=== PATIENT | male | born 1995 | race Caucasian/White ===

== ENCOUNTER 2017-07-05 15:17 | Emergency (ER) | payer OTHER ==
[2017-07-05] MEDS ORDERED: LET GEL TOPICAL 1 EA SYR TP ONE (16:08)
--- NOTE | 2017-07-05 16:12 | EDPHY ---
Addendum entered and electronically signed by Kristopher Dexter MD 07/05/17 17: 38: The patient does have a slightly displaced fracture of the anterior frontal sinus. There is evidence of a interval plate fracture or intracranial hemorrhage. This is a nonsurgical and non operative injury. The patient has been informed of the diagnosis. He will be discharged home with customary aftercare instructions and return precautions. There is no evidence that this fracture is open. Original Note: General - History Smoking Status: Never smoked Narrative: Independent physician examination I evaluated and participated in the management of the patient. I also evaluated the patient independently. My co-signature indicates that I have reviewed this chart and I agree with the findings and plan of care as documented. My personal H&P findings include: The patient presents to the ED with complaints of scalp pain and facial trauma following a mechanical fall. The patient is noted to have multiple superficial abrasions on exam. He did have frontal scalp tenderness and a hematoma. The patient was taken for a CT scan of the head given concerns about a possible frontal skull fracture. I have cleared the patient's cervical spine clinically. Plan will be for CT scan of the head. If the CT scan is negative, we will perform wound care and the patient will be discharged home with customary aftercare instructions and return precautions. (Kristopher Dexter) CHIEF COMPLAINT: Fall, facial injury HISTORY OF PRESENT ILLNESS: Patient reports that he was carrying someone on his back at the [employer] football game today when he tripped and fell. He struck his face on the concrete. No loss of consciousness. He sustained lacerations to the forehead and nose. He complains of a mild headache. No neck pain. No nausea or vomiting. No chest or back injury. He was placed in a C-collar in triage time arrival. He admits to drinking 2-3 drinks prior to the game 12 o'clock. No alcohol intake since then. No other associated complaints or modifying factors. ESTABLISHED ORTHOPEDIST: None REVIEW OF SYSTEMS: Ten systems reviewed and are negative unless otherwise noted in the HPI PAST MEDICAL HISTORY: Denies any medical history PAST SURGICAL HISTORY: None SOCIAL HISTORY: Currently [facility] [employer] [facility] Student FAMILY HISTORY: Noncontributory EXAMINATION General Appearance: Alert, no distress HEENT: Normocephalic. No Yarbrough sign. No raccoon eyes. Superficial abrasions to the forehead and bridge of the nose. Frontal hematoma. No occipital hematoma. No scalp laceration. No depression. Neck: C-collar in place. Midline trachea. Cardiovascular: Pulses normal throughout. Symmetric DP and PT pulses. Brisk cap refill Neurological: GCS 15. A&O, sensory symmetric, strength symmetric. No pronator drift. No dysmetria. Skin: Warm and dry, no rash. Abrasions to the forehead and nasal bridge. No lacerations. Extremities: Nontender, no pedal edema Psychiatric: Mood and affect normal DIFFERENTIAL DIAGNOSES: Including but not limited to abrasion, contusion, hematoma, intracranial hemorrhage, fracture, sprain, strain MDM: 4:05 p.m. Mechanical fall with abrasions to the forehead and nose. C-collar placed in triage due to alcohol intoxication. The patient appears to be clinically sober and has no neck pain. Low clinical suspicion for intracranial abnormality. Tetanus is up-to-date less than 2 years ago. I discussed with Dr. Dexter and he will evaluate the patient as well. 4:40 p.m. Patient has been seen by Dr. Dexter. He has ordered a CT scan of the head. He has cleared the C-spine. 5:20 p.m. I have read the CT scan. There appears left-sided frontal. No significant fluid accumulation sinus. Official radiology interpretation pending 5:[address] was also discussed with Dr. Dexter. I have evaluated the patient and informed him of frontal sinus fracture. This is a nonsurgical fracture the usually requires no follow-up for further care. How he will be discharged home with instructions to take ibuprofen [id number] 800 mg every 8 hours or Aleve twice daily. ED precautions discussed for worsening headache, nausea vomiting. Prophylaxis Keflex to the abrasion overlying the fracture. There is not a laceration but only superficial abrasions. He is comfortable this plan. His family is with him. I have answered all the questions and he is discharged in stable condition. ED Precautions: Worsening pain. Erythema, edema, cyanosis, pallor, paresthesia or anesthesia. (Boone Moore) - Diagnostics Imaging Results: Imaging Impressions Head CT 07/05/17 16:40 Impression: Left frontal sinus anterior wall slightly depressed fracture. Results called to Dr. Ishmael Dexter at 5:26 PM General information for patients regarding this examination can be found at [email or web address]. If you have questions or comments about this report, please contact me at (hospital) or [phone] (cell). - Objective Vital Signs: Initial Vital Signs Temperature (C) 98.1 F 07/05/17 15:20 Heart Rate 100 07/05/17 15:20 Respiratory Rate 20 07/05/17 15:20 Blood Pressure 114/88 H 07/05/17 15:20 O2 Sat (%) 96 07/05/17 15:20 O2 Delivery Mode Room Air Allergies/Adverse Reactions: No Known Allergies Allergy (Unverified 07/05/17 15:19) Home Medications: Medication Instructions Recorded Cephalexin [Keflex (*)] 500 mg PO TID #30 cap 07/05/17 Keppra 07/05/17 Medications Given: Discontinued Medications Tetracaine/Epinephrine/Lidocaine (Let Gel Topical) 1 ea TP EDNOW ONE Stop: 07/05/17 16:09 Last Admin: 07/05/17 16:38 Dose: 1 ea Departure - Departure Disposition: Home, Routine, Self-Care Clinical Impression: Fall Qualifiers: Encounter type: initial encounter Qualified Code(s): W19.XXXA - Unspecified fall, initial encounter Closed head injury Qualifiers: Encounter type: initial encounter Qualified Code(s): S09.90XA - Unspecified injury of head, initial encounter Facial abrasion Qualifiers: Encounter type: initial encounter Qualified Code(s): S00.81XA - Abrasion of other part of head, initial encounter Frontal skull fracture Qualifiers: Encounter type: initial encounter Fracture type: closed Qualified Code(s): S02.0XXA - Fracture of vault of skull, initial encounter for closed fracture Condition: Good Instructions: Head Injury (ED), Abrasion (ED) Referrals: Clifford Polk MD [Medical Doctor] - As per Instructions NONE *PRIMARY CARE P,. [Primary Care Provider] - As per Instructions Asad Bourgeois MD [Medical Doctor] - As per Instructions Prescriptions: Cephalexin [Keflex (*)] 500 mg PO TID #30 cap
[2017-07-05] MEDS ORDERED: CEPHALEXIN 500MG PREPACK#4 BTL TAKEHOME ONE (17:41)
[2017-07-05 17:53] VITALS: BP 122/76; PULSE 81; RESP 16; TEMP 98.6; O2SAT 98
== END 2017-07-05 17:53 | disposition home or self-care (01) ==
DX: S02.0XXA Fracture of vault of skull, initial encounter for closed fracture (principal); S00.81XA Abrasion of other part of head, initial encounter; W01.198A Fall on same level from slipping, tripping and stumbling with subsequent striking against other object, initial encounter; Y93.89 Activity, other specified